=== PATIENT | male | born 1970 | race Caucasian/White ===

== ENCOUNTER → 2019-02-11 | Emergency (ER) | payer MEDICAID ==
[~2019-02-11] VITALS: Ht 185.4 cm; Wt 77.1 kg
--- NOTE | 2019-02-11 19:40 | NUR ---
AMA: SEE AMA FORM. pt leaving against medical advice, pt states he doesn't want any imaging done, ER PA aware, pt was informed the possible risks including , permanent disability, care home complication by ER PA, pt verbalized understanding and agrees with plan. pt advised to return to ED if sx worsen or new sx develop. pt left w/ all belongings.
[2019-02-11 19:41] VITALS: BP 120/72
--- NOTE | 2019-02-11 21:24 | Emergency Room Report ---
History of Present Illness General Chief Complaint: Multiple Trauma/Fall Source: Patient Present Illness HPI 48-year-old male with no significant past medical history here complaining of headache, dizziness, nausea, left elbow pain, left-sided chest and pelvic pain after falling today. Patient reports that he missed a step on the pavement and fell on concrete and hit the left side of his head, denies loss of consciousness. Also hit the left elbow to the concrete, has not taken medication for symptom relief. Patient is complaining of tenderness and pain in head, and left elbow and does not feel comfortable with a physical examination due to pain. However patient refuses any type of imaging and he is afraid that he may get charged later by his insurance. Patient is also requesting for pain medication only. Reports that ibuprofen does not work and does not want to take Tylenol here. Denies abdominal pain, bleeding, vision changes. Patient decided to leave AGAINST MEDICAL ADVICE after giving a dose of Tylenol, and understands the risks of leaving with a possible hematoma of the brain, fracture of left elbow, neurological abnormalities that can occur later post fall. Patient has full judgment and understands the risks of leaving against medical advice. Allergies: Coded Allergies: No Known Allergies (Unverified , 02/11/19) Patient History Past Medical History: see triage record Past Surgical History: unable to obtain Pertinent Family History: none Immunizations: UTD Reviewed Nursing Documentation: PMH: Agreed; PSxH: Agreed Nursing Documentation-PMH Past Medical History: No Stated History Review of Systems All Other Systems: negative except mentioned in HPI Physical Exam Vital Signs Date Time Temp Pulse Resp B/P (MAP) Pulse Ox O2 Delivery O2 Flow Rate FiO2 02/11/19 18:27 97.5 67 16 120/72 (88) 96 Room Air Sp02 EP Interpretation: reviewed, normal General Appearance: no apparent distress, alert, GCS 15, non-toxic Head: other - bruising left frontal lobe Eyes: bilateral eye normal inspection, bilateral eye PERRL ENT: hearing grossly normal, normal pharynx, no angioedema, normal voice Neck: full range of motion, supple/symm/no masses Respiratory: chest non-tender, lungs clear, normal breath sounds, no rhonchi, no wheezing, speaking full sentences Cardiovascular #1: regular rate, rhythm, no edema Cardiovascular #2: 2+ carotid (R), 2+ carotid (L), 2+ radial (R), 2+ radial (L) , 2+ dorsalis pedis (R), 2+ dorsalis pedis (L) Rectal: deferred Genitourinary: normal inspection, no CVA tenderness Musculoskeletal: back normal, normal range of motion, no calf tenderness, pelvis stable, gait/station normal, tender - left lateral elbow Neurologic: alert, motor strength/tone normal, oriented x3, sensory intact, responsive, speech normal Psychiatric: judgement/insight normal, memory normal, mood/affect normal, no suicidal/homicidal ideation Skin: no rash Lymphatic: normal inspection, no adenopathy Medical Decision Making PA Attestation All diagnoses and treatment plans were reviewed and discussed with my supervising physician Dr. Duffy Diagnostic Impression: Primary Impression: Left against medical advice ER Course 48-year-old male with no significant past medical history here complaining of headache, dizziness, nausea, left elbow pain, left-sided chest and pelvic pain after falling today. Patient reports that he missed a step on the pavement and fell on concrete and hit the left side of his head, denies loss of consciousness. Also hit the left elbow to the concrete, has not taken medication for symptom relief. Patient is complaining of tenderness and pain in head, and left elbow and does not feel comfortable with a physical examination due to pain. However patient refuses any type of imaging and he is afraid that he may get charged later by his insurance. Patient is also requesting for pain medication only. Reports that ibuprofen does not work and does not want to take Tylenol here. Denies abdominal pain, bleeding, vision changes. Patient decided to leave AGAINST MEDICAL ADVICE after giving a dose of Tylenol, and understands the risks of leaving with a possible hematoma of the brain, fracture of left elbow, neurological abnormalities that can occur later post fall. Patient has full judgment and understands the risks of leaving against medical advice. Ddx considered but are not limited to: cerebral hematoma, concussion, skull fracture, head contusion, elbow fracture, elbow sprain, chest contusion, rib fracture, pelvic contusion vs fracture vs dislocation Vital signs: are WNL, pt. is afebrile H&PE are most consistent with: Left AGAINST MEDICAL ADVICE ORDERS: Intended to order head CT with no contrast, chest abdomen pelvis CT scan , left elbow x-ray however patient refused ED INTERVENTIONS: tylenol as anything within the ibuprofen family may increase the risk of bleeding in the brain since we do not know cerebral hematoma or not Patient left AGAINST MEDICAL ADVICE and understood the consequences of leaving without having any scanning and having proper treatment. Patient had full judgment when signing AGAINST MEDICAL ADVICE and understood the risk of leaving however stable at time of discharge Last Vital Signs Date Time Temp Pulse Resp B/P (MAP) Pulse Ox O2 Delivery O2 Flow Rate FiO2 02/11/19 19:41 97.5 67 16 120/72 96 Room Air Disposition: AGAINST MEDICAL ADVICE Condition: Stable Referrals: NOT CHOSEN IPA/,REFERRING (PCP) Patrick Vides Feb 11, 2019 21:24
== END | disposition left against medical advice (07) ==
LOC: EMR 19:40
DX: Z53.29 Procedure and treatment not carried out because of patient's decision for other reasons (principal); R51 Headache; R42 Dizziness and giddiness; R11.0 Nausea; M25.522 Pain in left elbow; R07.9 Chest pain, unspecified; R10.2 Pelvic and perineal pain; W17.89XA Other fall from one level to another, initial encounter; Y93.89 Activity, other specified; Y92.9 Unspecified place or not applicable
CPT/HCPCS: 99282